=== PATIENT | male | born 1965 | race Two or more races ===

== ENCOUNTER 2020-11-23 17:18 | Emergency (ER) | payer SELFPAY ==
[~2020-11-23] VITALS: Ht 157.5 cm; Wt 64.8 kg
--- NOTE | 2020-11-23 18:45 | NUR ---
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
--- NOTE | 2020-11-23 18:58 | NUR ---
INITIAL PT CONTACT. PT PRESENTS TO ED C/O RIGHT JAW SWELLING FROM TOOTH INFECTION X1 WEEK. PT STATES "I WAS TOLD TO COME IN TO THE ER BY MY DENTIST, HE SAID I NEED IMAGING OR SOMETHING." PT SITTING UPRIGHT ON OMAYRA NAIR VSS. RESPIRATIONS EQUAL AND UNLABORED. SPOUSE AT BEDSIDE. ERP AT BEDSIDE. DENIES ANY NEEDS AT THIS TIME.
[2020-11-23] MEDS ORDERED: SODIUM CHLORIDE FLUSH 10ML SYR IVF ONE (19:00)
[2020-11-23] MEDS ORDERED: OXYcodone/APAP 5/325MG TABLET PO ONE (19:00)
[2020-11-23] MEDS ORDERED: OXYcodone/APAP 5/325MG TABLET ONE (19:02)
[2020-11-23 19:16] LABS: ALBUMIN 3.3 g/dL (3.4-5.0); ANION GAP 6 mmol/L (5-15); CALCIUM 8.8 mg/dL (8.5-10.1); CHLORIDE 105 mmol/L (98-107); CREATININE 0.69 mg/dL (0.7-1.3)
[2020-11-23 19:17] LABS: BASOPHILS % (AUTO) 1 % (0-1); EOSINOPHILS % (AUTO) 0 % (1-7); LYMPHOCYTES % (AUTO) 21 % (22-44); MEAN CORPUSCULAR HEMOGLOBIN 31.1 pg (27.5-34.5); MEAN CORPUSCULAR HGB CONC 34.3 g/dL (33.2-36.2); MEAN PLATELET VOLUME 7.5 fL (7.4-10.4); MONOCYTES % (AUTO) 9 % (2-9); NEUTROPHILS % (AUTO) 69 % (42-75); PLATELET COUNT 341 x10^3/uL (130-400); RED BLOOD COUNT 5.08 x10^6/uL (4.38-5.82); RED CELL DISTRIBUTION WIDTH 13.2 % (9.4-14.8)
--- NOTE | 2020-11-23 19:17 | NUR ---
PT SITTING UPRIGHT ON OMAYRA NAIR VSS. PT DENIES ANY NEEDS AT THIS TIME. CALL LIGHT AND PERSONAL BELONGINGS WITHIN REACH. SPOUSE AT BEDSIDE. AWAITING CT.
[2020-11-23 19:18] LABS: MD NO
--- NOTE | 2020-11-23 19:48 | NUR ---
REPORT TO MYRNA [facility]GR[facility]
--- NOTE | 2020-11-23 19:49 | NUR ---
Report received and care assumed. Pt awaiting CT scan. Pain med already given by previous RN.
--- NOTE | 2020-11-23 20:13 | NUR ---
Pt taken to CT via gurney by cable television line technician at this time.
--- NOTE | 2020-11-23 20:27 | NUR ---
Pt back from CT. Pt states pain is decreased to 3/10 after pain registered medical transcriptionist on reassessment. VS reassessed and found to be stable at this time. Call light in reach with at bedside.
[2020-11-23] MEDS ORDERED: OMNIPAQUE 350 MG/ML, 75ML BOTTLE ONE (20:33)
--- NOTE | 2020-11-23 20:51 | NUR ---
PA at bedside for discussion of results and plan of care now.
[2020-11-23 21:12] VITALS: BP 151/84
== END 2020-11-23 21:14 | disposition home or self-care (01) ==
LOC: ED 17:48
DX: K04.7 Periapical abscess without sinus (principal); R22.0 Localized swelling, mass and lump, head
CPT/HCPCS: 36415; 70487; 80048; 82040; 85025; 99285; Q9967